=== PATIENT | male | born 1965 | race Caucasian/White ===

== ENCOUNTER 2017-03-13 11:59 | Outpatient (CLI) | payer BC ==
--- NOTE | 2017-03-13 14:24 | CT ---
EXAM: LUMBAR SPINE CT WITHOUT CONTRAST: HISTORY: Lumbar radiculopathy. Low back pain x 1 year. Left-sided radiculopathy. COMPARISON: None. CORRELATION: Lumbar spine MRI 02/15/17. TECHNIQUE: A lumbar spine MRI is performed without intravenous Gadolinium administration. Multisequential, mul tiplanar imaging is performed. FINDINGS: Lumbar spine vertebral body height is maintained. There is no fracture. There is 4.7 mm of anterol isthesis of L3 upon L4 and 4.8 mm of retrolisthesis of L4 upon L5. There is vacuum joint phenomenon involving the left and right intraarticular facet joints at L3-L4. Degenerative change of posterio r elements at this level are identified. There is pseudoarthrosis of the left and right L5 ala with the sacrum. Visualized solid echotexture structures are unremarkable. Visualized alimentary canal is unremarkab le. Symmetric attenuation of psoas muscles. Lumbar spine vertebral body height is maintained. No fracture. Limited evaluation of the central spinal canal and neural foramen due to technique. T11-T12 and T12-L1: No high central canal stenosis. Neural foramina are patent. L1-L2: No high-grade central canal stenosis. Neural foramen are patent. L2-L3: Generalized disk bulge, ligamentum flavum thickening, and facet hypertrophy result in minima l central canal stenosis. Right neural foramen is patent. Minimal left foraminal narrowing. L3-L4: Broad-based disk bulge, ligamentum flavum thickening, and facet hypertrophy result in modera te to severe central canal stenosis. There is a centrally hypodense peripherally hyperdense lesion in the right posterior aspect of the central spinal canal causing narrowing of the right subarticula r zone. This lesion extends into the right neural foramen. There is moderate foraminal narrowing. There is mass effect upon the traversing right L4 nerve root. Findings are similar to the previous MRI. Overall, there is severe right foraminal narrowing. There is moderate left foraminal narrowi ng. L4-L5: Vacuum disk phenomenon. Broad-based disk bulge, ligamentum flavum thickening, and facet hyp ertrophy result in moderate central canal stenosis. Severe right and moderate to severe left forami nal narrowing. L5-S1: No high-grade central canal stenosis. Neural foramen are patent bilaterally. IMPRESSION: Degenerative change of the lumbar spine at L3-L4 and L4-L5 as detailed above. POS: [facility]
== END 2017-03-13 12:00 | disposition home or self-care (01) ==
LOC: CT 11:59
PROVIDERS: ATTEND Surgery
DX: M47.26 Other spondylosis with radiculopathy, lumbar region (principal)
CPT/HCPCS: 72131

== ENCOUNTER 2017-05-26 08:30 | Inpatient (IN) | payer BC ==
[2017-05-30] MEDS ORDERED: CEFAZOLIN/Water 2 GM/20 ML SYRINGE ONE (08:03)
[2017-05-30] MEDS ORDERED: Scopolamine 1.5 mg/72 hour Patch ONE (09:59)
[2017-05-30] MEDS ORDERED: Thrombin 5000 UNITS/5 ML VIAL ONE (10:30)
[2017-05-30] MEDS ORDERED: Bacitracin Zinc Ointment 30 gm TUBE ONE (10:30)
[2017-05-30] MEDS ORDERED: Sodium Chloride 0.9% 10 ML ONE (10:30)
[2017-05-30] MEDS ORDERED: Vecuronium 10 MG VIAL ONE ×2 (10:37→11:53)
[2017-05-30] MEDS ORDERED: Albumin 5% 500 ML ONE (10:37)
[2017-05-30] MEDS ORDERED: Phenylephrine 10 MG/NS 250 ML 250 ML ONE (10:37)
[2017-05-30] MEDS ORDERED: Fentanyl 250 MCG/5 ML VIAL ONE (10:49)
[2017-05-30] MEDS ORDERED: Midazolam HCl 2 mg/2 ml Vial ONE (10:57)
[2017-05-30] MEDS ORDERED: ePHEDrine/0.9% NaCl/PF SYRINGE 50 mg/10 ml ONE (11:53)
[2017-05-30] MEDS ORDERED: Dexamethasone 20 MG/5 ML VIAL ONE (11:53)
[2017-05-30] MEDS ORDERED: Propofol 200 MG/20 ML VIAL ONE (11:53)
[2017-05-30] MEDS ORDERED: Glycopyrrolate 0.2 MG/ML 5 ML SYRINGE ONE (11:53)
[2017-05-30] MEDS ORDERED: Ondansetron HCl/PF 4 MG/2 ML Vial ONE (11:53)
[2017-05-30] MEDS ORDERED: Lidocaine 1% PF 5 ML VIAL ONE (11:53)
[2017-05-30] MEDS ORDERED: PHENYLEPHRINE-NS 100 MCG/ML 10 ML SYRINGE ONE (11:53)
[2017-05-30] MEDS ORDERED: Ondansetron HCl/PF 4 MG/2 ML Vial IVP PRN ×2 (12:59→15:47)
[2017-05-30] MEDS ORDERED: Morphine Sulfate 2 MG/ML SYRINGE SLOW IVP PRN (12:59)
[2017-05-30] MEDS ORDERED: Meperidine HCl/PF 25 MG/ML VIAL SLOW IVP PRN (12:59)
[2017-05-30] MEDS ORDERED: Promethazine HCl 25 MG/ML VIAL IM PRN ×2 (12:59→15:47)
[2017-05-30] MEDS ORDERED: Promethazine HCl 25 MG/ML VIAL SLOW IVP PRN (12:59)
[2017-05-30] MEDS ORDERED: HYDROmorphone 2 MG/ML VIAL SLOW IVP PRN (12:59)
[2017-05-30] MEDS ORDERED: Fentanyl 100 MCG/2 ML VIAL ONE ×2 (14:32→16:25)
[2017-05-30] MEDS ORDERED: HYDROmorphone 0.5 MG/0.5 ML SYRINGE ONE ×5 (15:46→17:31)
[2017-05-30] MEDS ORDERED: HYDROcodone/Acetaminophen 10/325 mg Tablet PO PRN ×2 (15:47→20:28)
[2017-05-30] MEDS ORDERED: Acetaminophen 325 MG TAB PO PRN (15:47)
[2017-05-30] MEDS ORDERED: Bisacodyl 10 MG SUPP PR PRN (15:47)
[2017-05-30] MEDS ORDERED: Milk Of Magnesia 30 ML UDCUP PO PRN (15:47)
[2017-05-30] MEDS ORDERED: Mag-Al 1200 mg/1200 mg/30 ML UDCUP PO PRN (15:47)
[2017-05-30] MEDS ORDERED: traMADol HCl 50 MG TAB PO PRN (15:47)
[2017-05-30] MEDS ORDERED: Morphine 4 MG/ML VIAL SLOW IVP PRN (15:47)
[2017-05-30] MEDS ORDERED: Acetaminophen/Codeine 30-300mg Tablet PO PRN (15:47)
[2017-05-30] MEDS ORDERED: Fleet Enema 133 ML BOT PR PRN (15:47)
[2017-05-30] MEDS ORDERED: Zolpidem Tartrate 5 MG TAB PO PRN ×2 (15:49→16:54)
[2017-05-30] MEDS: CEFAZOLIN/Water 2 GM/20 ML SYRINGE SLOW IVP SCH (20:07)
[2017-05-30] MEDS: HYDROcodone/Acetaminophen 10/325 mg Tablet PO PRN (20:39)
[2017-05-30] MEDS: Sodium Chloride 0.9% 1,000 ML IV SCH (20:41)
[2017-05-30] MEDS ORDERED: Pravastatin Sodium 20 MG TAB PO SCH (21:00)
[2017-05-30] MEDS: Cyclobenzaprine 10 MG TAB PO PRN (21:24)
[2017-05-31] MEDS: HYDROcodone/Acetaminophen 10/325 mg Tablet PO PRN ×5 (00:56→16:37)
[2017-05-31] MEDS: CEFAZOLIN/Water 2 GM/20 ML SYRINGE SLOW IVP SCH ×2 (00:58→08:42)
[2017-05-31] MEDS: Cyclobenzaprine 10 MG TAB PO PRN ×2 (05:08→13:30)
[2017-05-31 05:53] VITALS: BMI 27.8
[2017-05-31] MEDS ORDERED: Losartan Potassium 25 MG TAB PO SCH (09:00)
--- NOTE | 2017-05-31 09:08 | PRG ---
DATE OF SERVICE: 05/31/2017 Mr. Forbes is postoperative day 1 from L3-L5 decompression, synovial cyst removal and surgical stabi lization with screw meenakshi fixation and arthrodesis graft. He is doing well this morning. He has had h is Flores catheter removed and has already mobilized to the bathroom and voided. He has good strength throughout his lower extremity myotomes. He reports some discomfort in the hamstring region on the right side in the distal posterior thigh. I suspect this is nerve root irritation simply because monika t is where he had a synovial cyst and the most adherent over the L3-L4 segment compressing the L4 ner ve root. We will continue to monitor him today. I anticipate another night in the hospital. When odilon mercer meets criteria, he may be dismissed.
--- NOTE | 2017-05-31 10:05 | OP ---
OR: 11. WOUND TYPE: Type 1 wound. SURGEON: Raymundo Hines M.D. OPERATIONS SUPERINTENDENT: Ignacio Carrizales PA-C. PREPROCEDURE DIAGNOSIS: L3 on L4 synovial cyst with spondylolisthesis with L4-L5 stenosis, resulting in low back and leg pain. POSTPROCEDURE DIAGNOSIS: L3 on L4 synovial cyst with spondylolisthesis with L4-L5 stenosis, resultin g in low back and leg pain. PROCEDURES: 1. L3-L4 synovial cyst removal for decompression of the L3-L4 nerve roots. 2. L4-L5 laminectomy, partial facetectomy, and foraminotomies over the L4-L5 nerve roots. 3. Lumbar spine fusion, L3, L4, L5 posterolateral with local bone autograft obtained from the same i ncision, allograft and BMP. 4. Placement of pedicle screw-meenakshi fixation, L3, L4, L5 bilaterally for surgical stabilization and fi xation. DESCRIPTION OF PROCEDURE: After informed consent was obtained from the patient, the patient brought to OR 11. Proper patient pause and identification was carried out. He was placed under excellent ge neral endotracheal anesthesia and positioned prone on the operating room table. All appropriate poin ts were padded. We identified the L3, L4, L5 dorsal spines. A linear kasey was made over this region . This area was sterilely cleansed, prepared, and draped. Proper patient pause and identification w as carried out. The wound was then opened with a combination of sharp, monopolar, and blunt dissecti on and the L3, L4, L5 dorsal spines and lamina were exposed. The facet complexes were also exposed a long with the transverse processes at L3, L4, and L5 bilaterally. We then performed an L3-L4 laminec omero for removal of the synovial cyst. The synovial cyst was quite adherent to the dura, and I did c ome upon a small pin hole in the dura with a very little amount of CSF leak. The CSF leak was repair ed with a small suture and muscle pledget and no further leak was identified. I then turned our atte ntion to the L4-L5 segment, and an L4-L5 laminectomy, partial facetectomy, and foraminotomy were perf ormed at that segment as well with excellent decompression at the conclusion of our decompression ove r the L3, L4, L5 nerve roots and the common dural tube. The synovial cyst had been resected. We the n turned our attention to placement of pedicle screw-meenakshi fixation at L3, L4, L5, and this was perform ed and I was pleased with the construct with gross and fluoroscopic visualization. Rods were placed and final tightening occurred. We then turned our attention to the arthrodesis at L3, L4, L5, and de cortication of the pars and transverse processes of facet joints at L3, L4, L5 was performed and BMP. Local bone autograft obtained from the same incision and allograft was laid bilaterally. DuraSeal was placed over the common dural tube and hemostasis was maximized throughout. The wound was then cl osed in anatomic layers following copious irrigation and the sprinkling of vancomycin powder. The pa tient then emerged from anesthesia.
[2017-05-31 15:50] VITALS: BP 96/57; TEMP 98.6
[2017-05-31] MEDS: Sodium Chloride 0.9% 1,000 ML IV SCH (17:03)
--- NOTE | 2017-06-03 17:27 | PQF ---
BEULAH SENIOR JASON MD [id number] SURG [id number]- [id number] CLINICAL DOCUMENTATION CLARIFICATION FORM: POST DISCHARGE In the description of the operative procedure a "Pin hole in Dura with very little amount of CSF leak" was noted by the surgeon. If possible would you please further clarify if this was: Please check appropriate box(s): [ ] Non-traumatic Incidental occurrence. [ ] Accidental puncture or Laceration during the procedure. [ ] Non-traumatic due to (specify cause) [ ] Other [ ] Unable to determine Please exercise your independent, professional judgment in responding to the clarification form. Clinical indicators are provided on the bottom of this form for your review. Thank you. CLINICAL INDICATORS - SIGNS / SYMPTOMS / LABS OP report states; "The synovial cyst was quite adherent to the dura, I did come upon a small pin hole in the Dura with very little of CSF leak. The CSF leak was repaired with small suture and muscle pledget." RISK FACTORS Previous epidural injections Synovial cyst TREATMENTS: Repair of Dura/ CSF leak (This form is maintained as a part of the permanent medical record) 2014 [employer] All Rights Reserved [email or web address] [phone] MTDKatja
== END 2017-05-31 18:58 | disposition home or self-care (01) | DRG 460 ==
LOC: SURG A 05-30 07:51
PROVIDERS: ADMIT Surgery; ATTEND Surgery
PROC: 0SG1071 Fusion of 2 or more Lumbar Vertebral Joints with Autologous Tissue Substitute, Posterior Approach, Posterior Column, Open Approach (ICD-10-PCS; principal; 2017-05-30)
PROC: 0SB00ZZ Excision of Lumbar Vertebral Joint, Open Approach (ICD-10-PCS; 2017-05-30)
PROC: 00UT07Z Supplement Spinal Meninges with Autologous Tissue Substitute, Open Approach (ICD-10-PCS; 2017-05-30)
DX: M48.062 Spinal stenosis, lumbar region with neurogenic claudication (principal); F17.290 Nicotine dependence, other tobacco product, uncomplicated; G97.41 Accidental puncture or laceration of dura during a procedure; M71.38 Other bursal cyst, other site; M43.16 Spondylolisthesis, lumbar region; M54.16 Radiculopathy, lumbar region
CPT/HCPCS: 76001; A4216; C1713; C1768; J1100; J1170; J2001; J2250; J2270; J2405; J2704; J3010; J3370; J3490; P9045

== ENCOUNTER 2017-05-26 08:31 | Outpatient (CLI) | payer BC ==
[2017-05-26 09:38] LABS: Hematocrit 43.2 % (42.0-52.0); Mean Platelet Volume 6.3 fL (7.4-10.4); Red Blood Cell (RBC) Count 4.45 mill/uL (4.70-6.10)
[2017-05-26 09:45] LABS: PTT 29.3 SEC (22.9-36.1); Prothrombin Time 13.3 SEC (12.0-14.7)
[2017-05-26 09:53] LABS: Anion Gap 7 mmol/L (10-20); BUN (Urea Nitrogen) 13 mg/dL (8.4-25.7); Calc. Creatinine Clearance 0 mL/min (70-130); Calcium 9.5 mg/dL (7.8-10.44); Carbon Dioxide 32 mmol/L (22-29); Chloride 104 mmol/L (98-107); Estimated GFR-MDRD 79
--- NOTE | 2017-06-10 13:28 | EKG ---
Test Reason : Blood Pressure : / mmHG Vent. Rate : 053 BPM Atrial Rate : 053 BPM P-R Int : 188 ms QRS Dur : 106 ms QT Int : 400 ms P-R-T Axes : 059 -02 023 degrees QTc Int : 375 ms Sinus bradycardia Otherwise normal ECG No previous ECGs available Confirmed by ANDREIA TATUM MD ([id number]) on 06/10/2017 1:28:01 PM Referred By: ROSEMARIE Confirmed By:ANDREIA TATUM MD
== END 2017-05-26 08:32 | disposition home or self-care (01) ==
LOC: LABBT 08:31
PROVIDERS: ATTEND Surgery
DX: Z01.818 Encounter for other preprocedural examination (principal); M54.16 Radiculopathy, lumbar region; M48.062 Spinal stenosis, lumbar region with neurogenic claudication; M71.30 Other bursal cyst, unspecified site
CPT/HCPCS: 80048; 85027; 85610; 85730; 93005; 93010

== ENCOUNTER 2017-07-12 08:34 | Outpatient (CLI) | payer BC ==
--- NOTE | 2017-07-12 09:25 | RAD ---
TWO VIEWS LUMBOSACRAL SPINE: Comparison: CT lumbar spine 03-13-17 History: Follow up from surgery. FINDINGS: Two views of the lumbosacral spine shows the patient to be status post posterior fusion of L3 through L5 with bilateral pedicle screws. Laminectomies have also been performed at L3, L4, and L5. No perih ardware lucency is seen. The vertebral bodies demonstrate normal alignment without fracture or sublux ation. Small osteophytes are seen throughout the lumbar spine. IMPRESSION: Post-surgical changes of the lumbar spine without evidence of complication. POS: [facility]
== END 2017-07-12 08:35 | disposition home or self-care (01) ==
LOC: TBSIIMAG 08:34
PROVIDERS: ATTEND Surgery
DX: M43.16 Spondylolisthesis, lumbar region (principal); Z98.890 Other specified postprocedural states
CPT/HCPCS: 72100

== ENCOUNTER 2018-01-12 06:30 | Emergency (ER) | payer BC ==
[2018-01-12] MEDS ORDERED: Ondansetron HCl/PF 4 MG/2 ML Vial ONE (06:56)
[2018-01-12] MEDS ORDERED: Fentanyl 100 MCG/2 ML VIAL ONE (06:56)
[2018-01-12] MEDS ORDERED: Ketorolac Tromethamine 30 MG/ML VIAL ONE (06:56)
[2018-01-12 07:04] LABS: Bilirubin Negative (Negative); Blood, Urine Large (Negative); Clarity CLEAR (Clear); Glucose, Urine (Dipstick) Negative (Negative); Leukocyte Negative (Negative); Nitrite Negative (Negative); Protein, Urine (Dipstick) Negative (Neg-Trace); Specific Gravity, Urine 1.017 (1.002-1.036); Urobilinogen 0.2 mg/dL (0.2-1.0); pH, Urine 6.5 (5.0-9.0)
[2018-01-12 07:04] LABS: #Lymphocytes 1.1 thou/uL (1.20-3.40); #Monocytes 0.4 thou/uL (0.11-0.59); #Neutrophils 6.3 thou/uL (1.40-6.50); %Basophils 0.1 % (0.0-1.0); %Eosinophils 0.4 % (0.0-10.0); %Lymphocytes 13.7 % (21.0-51.0); %Monocytes 5.3 % (0.0-10.0); %Neutrophils 80.5 % (42.0-75.0); Hemoglobin 15.1 g/dL (14.0-18.0); Mean Corpuscular HGB CONC 34.6 g/dL (32.0-36.0); Mean Corpuscular Hemoglobin 32.5 pg (27.0-31.0); Mean Platelet Volume 6.4 fL (7.4-10.4); Platelet Count 229 thou/uL (130-400); Red Blood Cell (RBC) Count 4.66 mill/uL (4.70-6.10); White Blood Cell (WBC) Count 7.9 thou/uL (4.8-10.8)
[2018-01-12 07:06] LABS: Bacteria/HPF None Seen HPF (None Seen); Hyaline Casts/LPF 0-3 HYALINE CAST LPF (0-3 Hyaline); Pathc Cast-AUWi Flag 0.14 (0-2.49); RBC/HPF GREATER THAN 50-TNTC HPF (0-3); Squamous Epithelial None Seen HPF (0-3); WBC/HPF 0-3 HPF (0-3)
[2018-01-12 07:30] LABS: ALT (SGPT) 19 U/L (8-55); AST (SGOT) 21 U/L (5-34); Albumin 4.7 g/dL (3.5-5.0); Alkaline Phosphatase 57 U/L (40-150); Anion Gap 14 mmol/L (10-20); BUN (Urea Nitrogen) 18 mg/dL (8.4-25.7); Bilirubin, Total 0.8 mg/dL (0.2-1.2); Calc. Creatinine Clearance 0 mL/min (70-130); Calcium 9.9 mg/dL (7.8-10.44); Carbon Dioxide 25 mmol/L (22-29); Chloride 105 mmol/L (98-107); Estimated GFR-MDRD 66; Globulin 3.1 g/dL (2.4-3.5); Glucose 123 mg/dL (70-105); Lipase 11 U/L (8-78); Potassium 4.7 mmol/L (3.5-5.1); Protein, Total 7.8 g/dL (6.0-8.3); Sodium 139 mmol/L (136-145)
--- NOTE | 2018-01-12 08:21 | CT ---
CT ABDOMEN WITHOUT CONTRAST: CT PELVIS WITHOUT CONTRAST: HISTORY: Left flank pain. Increased pain that woke him up from his sleep. COMPARISON: None. TECHNIQUE: An abdomen and pelvis CT are performed without IV or oral contrast. Coronal reformatted images are s ubmitted for interpretation. FINDINGS: ABDOMEN: The lung bases are clear. Normal heart size. No significant pericardial fluid. The visua lized aorta has a normal caliber. Limited evaluation of the solid organs due to lack of IV contrast. Grossly, no solid organ abnormality. No gastrohepatic, retrocrural, or periportal lymphadenopathy. No mesenteric mass, lymphadenopathy, free air, or free fluid. Limited evaluation of the alimentary canal due to lack of oral contrast. There is evidence of previous bariatric change. Multiple edson l caliber small bowel loops. The ileocecal junction is normal. Normal caliber appendix. Scattered fecal material in a nondistended, nondilated colon. Punctate, nonobstructing calculus in the right r enal pelvis. Mild left-sided obstructive uropathy secondary to a punctate, 2 mm calculus in the dist al left ureter, just proximal to the ureterovesical junction. There is a nonobstructing punctate poncho cification in the lower pole left kidney, measuring 2 mm. PELVIS: No mass, lymphadenopathy, free air, or free fluid. No calcification in the urinary bladder. Normal caliber appendix. No lytic or blastic lesions in the osseous structures. IMPRESSION: 1. Mild left-sided obstructive uropathy secondary to punctate calcification, measuring 3 mm in the d istal left ureter, just proximal to the left ureterovesical junction. 2. Normal caliber appendix. The results of the study were discussed with Dr. Whiting on 01/12/2018 at 7:52 a.m. KEMI REYNOLDS POS: [facility]
== END 2018-01-12 08:52 | disposition home or self-care (01) ==
LOC: ERS 06:30
DX: N20.2 Calculus of kidney with calculus of ureter (principal); I10 Essential (primary) hypertension; E78.00 Pure hypercholesterolemia, unspecified; Z79.899 Other long term (current) drug therapy
CPT/HCPCS: 74176; 80053; 81003; 81015; 83690; 85025; 96361; 96374; 96375; J1885; J2405; J3010

== ENCOUNTER 2018-04-30 07:16 | Outpatient (CLI) | payer BC ==
--- NOTE | 2018-04-30 09:03 | MRI ---
CERVICAL SPINE MRI NONCONTRAST: INDICATION: Cervical radicular pain. FINDINGS: There is no evidence of acute marrow edema or compression fracture. No significant subluxation. Mul tilevel end plate degenerative change with disk space narrowing and marginal osteophyte formation pre sent. There is degenerative hypertrophy at the C1-2 level. No intrinsic expansile process of the ce rvical spinal cord is visualized. C1-2 level reveals no significant central canal stenosis. C2-3: There is a disk-osteophyte with minimal effacement of the ventral thecal sac and moderate righ t foraminal narrowing. No significant left foraminal stenosis. C3-4: Broad-based, right asymmetric disk-osteophyte results in mild central canal stenosis and mild to moderate left and moderate right neural foraminal stenosis when combined with degenerative facet h ypertrophy. C4-5: There is a broad-based disk-osteophyte which results in mild to moderate central canal stenosi s, moderate right and mild to moderate neural foraminal stenosis. C5-6: Broad-based disk-osteophyte complex is present with a superimposed left paracentral disk protr usion. This results in moderate central canal stenosis with ventral cord effacement. There is moder ate bilateral neural foraminal stenosis. C6-7: Disk-osteophyte complex is present, with a prominent right subarticular component which efface s the right C7 nerve root and produces moderate effacement of the right hemicord. Mild to moderate b ilateral neural foraminal narrowing is present. C7-T1: There is a right asymmetric disk-osteophyte with effacement of the right C8 nerve root and mi ld central canal stenosis to the right of midline. There is mild to moderate bilateral neural forami nal stenosis. IMPRESSION: 1. Multilevel cervical spine degenerative change, as outlined above. 2. Incidental note of a prominent disk protrusion, incompletely assessed involving the T2-3 level. Recommend dedicated thoracic spine imaging for further detail. POS: [facility]
== END 2018-04-30 07:17 | disposition home or self-care (01) ==
LOC: BICMRI 07:16
PROVIDERS: ATTEND Nurse Practitioner Family
DX: M47.22 Other spondylosis with radiculopathy, cervical region (principal)
CPT/HCPCS: 72141